=== PATIENT | female | born 1965 | race Caucasian/White ===

== ENCOUNTER → 2021-03-30 13:52 | Outpatient (CLI) | payer OTHER, SELFPAY ==
--- NOTE | ~2021-03-30 | XR_ITS ---
XR thoracic spine 3V DATE: 03/30/2021 14:09 INDICATION: Right mid back pain. Lumbar pain. TECHNIQUE: Standing AP and lateral and swimmer views COMPARISON: None FINDINGS: There is diffuse idiopathic skeletal hyperostosis of the mid to lower thoracic spine. No fr acture or dislocation or bone destruction. The thoracic pedicles are intact. No paraspinal soft tissu e thickening. IMPRESSION: Diffuse idiopathic skeletal hyperostosis Reviewed, dictated and finalized at location A.
--- NOTE | ~2021-03-30 | XR_ITS ---
XR lumbar spine 2-3V DATE: 03/30/2021 14:09 INDICATION: Right mid back pain, lumbar pain. TECHNIQUE: Standing AP, lateral, coned lateral lumbosacral views COMPARISON: None FINDINGS: There are 4 functional lumbar vertebra and a transitional lumbosacral vertebra. Lumbar and lumbosacral interspaces appear well preserved. There is mild degenerative spurring in the mid to lower lumbar spine. Diffuse osteopenia. No fracture or bone destruction or spondylolisthesis. The lumbar pedicles are intact. The sacroiliac joints are intact. IMPRESSION: Mild degenerative spurring Osteopenia Reviewed, dictated and finalized at location A.
== END ==
PROVIDERS: PCP Internal Medicine; Visit Provider Internal Medicine
DX: M54.5 Low back pain (principal); M85.88 Other specified disorders of bone density and structure, other site; M47.816 Spondylosis without myelopathy or radiculopathy, lumbar region; M48.14 Ankylosing hyperostosis [Forestier], thoracic region
CPT/HCPCS: 72072; 72100

== ENCOUNTER → 2022-01-27 10:25 | Outpatient (CLI) | payer OTHER, SELFPAY ==
--- NOTE | ~2022-01-27 | XR_ITS ---
EXAMINATION: XR chest 2V DATE: 01/27/2022 10:44 INDICATION: Unexplained weight loss TECHNIQUE: AP and lateral views of the chest are obtained. COMPARISON: None available FINDINGS: A subtle 8 mm nodular opacity projects in the left lung base. There is no pleural effusion or pneumothorax. The cardiomediastinal silhouette is normal. There are bridging osteophytes at multip le levels in the spine, consistent with diffuse idiopathic skeletal hyperostosis (DISH). IMPRESSION: 1. Subtle nodular opacity of the left lung base. Further evaluation with CT of the chest is recommend ed. Reviewed, dictated and finalized at location F. IMPRESSION: 1. Subtle nodular opacity of the left lung base. Further evaluation with CT of the chest is recommended.
== END ==
PROVIDERS: PCP Internal Medicine; Visit Provider Internal Medicine
DX: R63.4 Abnormal weight loss (principal); R91.8 Other nonspecific abnormal finding of lung field
CPT/HCPCS: 71046

== ENCOUNTER → 2022-02-08 15:19 | Outpatient (CLI) | payer OTHER, SELFPAY ==
--- NOTE | ~2022-02-08 | CT_ITS ---
EXAMINATION: CT diagnostic chest wo con DATE: 02/08/2022 15:39 INDICATION: Lung nodule TECHNIQUE: Computed tomography (CT) of the chest was performed without intravenous contrast. The dose -length product (DLP) was 69.35 mGy-cm. Automated exposure control and iterative reconstruction techn ique were employed. COMPARISON: Chest radiograph, 01/27/2022 FINDINGS: There is a 1.3 x 1.0 cm nodule of the lingula. There is a 3 mm nodule of the right lower lo be on image 61. There is a 5 mm nodule of the right lower lobe on image 94. There is a 2 mm nodule of the right lower lobe on image 86. The lungs are free of focal airspace opacities. No pleural effusio n or pneumothorax. No pathologically enlarged thoracic lymph nodes are identified. The heart size is normal. There is moderate thoracic spondylosis. IMPRESSION: 1. Pulmonary nodules measuring up to 1.3 cm in the lingula. Findings could be infectious/inflammatory versus malignancy. Recommend comparison with any available prior imaging. If none is available, lesley mmend CT-guided biopsy or follow-up CT in three months. Reviewed, dictated and finalized at location B. IMPRESSION: 1. Pulmonary nodules measuring up to 1.3 cm in the lingula. Findings could be i nfectious/inflammatory versus malignancy. Recommend comparison with any availab le prior imaging. If none is available, recommend CT-guided biopsy or follow-up CT in three months.
== END ==
PROVIDERS: PCP Internal Medicine; Visit Provider Internal Medicine
DX: R91.1 Solitary pulmonary nodule (principal); R91.8 Other nonspecific abnormal finding of lung field
CPT/HCPCS: 71250

== ENCOUNTER → 2022-04-27 10:01 | Outpatient (CLI) | payer OTHER, SELFPAY ==
--- NOTE | ~2022-04-27 | CT_ITS ---
EXAMINATION: CT diagnostic chest wo con DATE: 04/27/2022 10:17 INDICATION: Left lung nodules TECHNIQUE: Computed tomography (CT) of the chest was performed without intravenous contrast. The dose -length product was 53.73 mGy-cm. Automated exposure control and iterative reconstruction technique w ere employed. COMPARISON: CT dated 02/08/2022 FINDINGS: No significant pleural or pericardial effusion. Heart size normal. No thoracic lymphadenopa thy. The upper abdomen is unremarkable. No focal airspace consolidation. There is a 3 mm right lower lobe nodule, unchanged. There is a 7 mm right lower lobe nodule, image 86, unchanged. Significant dec reased size of lingular nodule now measuringr 6 mm maximum dimension compared with 1.3 cm on prior ex amination, most likely postinfectious/inflammatory. No new pulmonary nodules or masses. IMPRESSION: 1. Stable or decreased size of bilateral pulmonary nodules compared with prior examination, likely be nign. Follow-up low dose CT chest in 12 months recommended. Reviewed, dictated and finalized at location A. IMPRESSION: 1. Stable or decreased size of bilateral pulmonary nodules compared with prior examination, likely benign. Follow-up low dose CT chest in 12 months keniae linda
== END ==
PROVIDERS: PCP Internal Medicine; Visit Provider Nurse Practitioner Family
DX: R91.8 Other nonspecific abnormal finding of lung field (principal)
CPT/HCPCS: 71250

== ENCOUNTER 2022-07-19 07:29 | Outpatient (NON) | payer OTHER, SELFPAY | END 2022-07-19 07:30 | disposition home or self-care (01) | LOC: ANHLAB 07-20 07:31 | PROVIDERS: PCP Internal Medicine; Visit Provider Internal Medicine Gastroenterology | DX: Z12.9 Encounter for screening for malignant neoplasm, site unspecified (principal); K63.5 Polyp of colon | CPT/HCPCS: 88305 ==

== ENCOUNTER 2022-07-19 10:34 | Day surgery (SDC) | payer OTHER, SELFPAY ==
[2022-02-21 11:27] VITALS: BMI 29.5
[2022-04-14 11:08] VITALS: BMI 23.1
[2022-07-12 06:27] VITALS: BMI 23.1
--- NOTE | 2022-07-12 06:32 | PC.NURSE ---
07/11/22 1500- patient called with new date and time--previous health history reviewed and amended
[2022-07-19 10:52] VITALS: BMI 22.6
[2022-07-19 11:03] LABS: Glucose Point of Care 96 mg/dl (65-105)
--- NOTE | 2022-07-19 11:20 | WPDANESEPPF ---
Anes - Initial Pre Proc Eval Procedure: Operation Date: 07/19/22 12:00 Proposed Procedures p Screening Colonoscopy - Julian Vivas MD Date/Time: 07/19/22 11:20 Surgeon: Julian Vivas MD Pre Op Diagnosis: Neoplasm Screening Patient Data Age: 57 Gender: F Height: 1.63 m Weight: 59.75 kg Allergies Allergy/AdvReac Type Severity Reaction Status Date / Time No Known Allergies Allergy Verified 07/19/22 10:51 Home Medications Medication Instructions Recorded Confirmed Type escitalopram oxalate 20 mg tablet 20 mg PO DAILY 02/24/22 07/19/22 History metformin 500 mg tablet,extended 2,000 mg PO DAILY 02/24/22 07/19/22 History release 24 hr rosuvastatin 20 mg tablet 20 mg PO DAILY 02/24/22 07/19/22 History semaglutide 0.25 mg or 0.5 mg (2 0.25 mg subcut WEEKLY 02/24/22 07/19/22 History mg/1.5 mL) subcutaneous pen injector (Ozempic) tamoxifen 20 mg tablet 20 mg PO DAILY 02/24/22 07/19/22 History Laboratory Tests 07/19/22 11:00 POC Capillary Glucose 96 mg/dl mg/dl (65-105) Patient hx anesthesia problems: none Family hx anesthesia problems: none Results Review: All pre-operative results and documents have been reviewed as part of the pre-operative evaluation. [facility] Past Medical History Medical History Anxiety HTN (hypertension) Irregular menses Microalbuminuria Nasal septal deviation s/p surgery 2018 Other hyperlipidemia Type 2 diabetes mellitus without complications Surgical History Surgical History H/O nasal septoplasty Family History Family History Father Cerebrovascular accident, Onset Age: 86 Family history of coronary artery disease, Onset Age: 86 Patient's father is , Onset Age: 86 Acute myocardial infarction Mother Breast cancer Hypertension Dementia Sibling Diabetes mellitus Sibling Hypertension Sibling Psoriatic arthritis Diabetes mellitus Non-melanoma skin cancer Social History Social History Smoking status: Never smoker Alcohol intake: current Drinks per week: 1 Alcohol use details: 1 drink/week Substance use: never Substance use type: does not use Living arrangements: with family 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 Informed Consent: The patient's anesthetic plan and its attendant risks and benefits were discussed with the patient/family/POA. Questions were solicited and answers provided to the satisfaction of the patient/family/POA.
[2022-07-19 11:22] VITALS: BP 117/77; PULSE 115; RESP 16; TEMP 37.8; O2SAT 98
[2022-07-19] MEDS: LACTATED RINGERS 1,000 ML 150 ML IV CONT (11:24)
--- NOTE | 2022-07-19 11:50 | PM.HPGS ---
History of Present Illness History of Present Illness Consent: Risks, benefits, and alternatives have been discussed and questions answered. Patient agrees to proceed with procedure. Chief complaint: Neoplasm Screening Narrative: Lissa Ritter is a 57 year old female with colon polyp ~ 5 years ago Review of Systems Constitutional: Constitutional: Denies headache(s) and Denies weakness Eyes: Eyes: Denies blurry vision ENT: Reports Normal hearing present, Denies headache(s) and Denies neck pain Cardiovascular: Cardiovascular: Denies chest pain and Denies dyspnea Respiratory: Respiratory: Denies dyspnea Gastrointestinal: Gastrointestinal: Reports no additional gastrointestinal complaints Genitourinary: Genitourinary: Denies dysuria Musculoskeletal: Musculoskeletal: Denies neck pain Integumentary/Breasts: Skin/Breast: Denies dry skin Neurologic: Reports Normal hearing present, Denies headache(s) and Denies weakness Psychiatric: Psychiatric: Denies anxiety Endocrine: Endocrine: Denies change in body appearance Hematologic/Lymphatic: Hematologic/Lymphatic: Denies easy bleeding Allergic/Immunologic: Allergic/Immunologic: Denies urticaria PMFSH Past Medical History Medical History (Updated 07/19/22 @ 11:51 by Julian Vivas MD) Adenomatous colon polyp Anxiety HTN (hypertension) Irregular menses Microalbuminuria Nasal septal deviation s/p surgery 2018 Other hyperlipidemia Type 2 diabetes mellitus without complications Surgical History Surgical History H/O nasal septoplasty Family History Family History Father Cerebrovascular accident, Onset Age: 86 Family history of coronary artery disease, Onset Age: 86 Patient's father is , Onset Age: 86 Acute myocardial infarction Mother Breast cancer Hypertension Dementia Sibling Diabetes mellitus Sibling Hypertension Sibling Psoriatic arthritis Diabetes mellitus Non-melanoma skin cancer Social History Social History Smoking status: Never smoker Alcohol intake: current Drinks per week: 1 Alcohol use details: 1 drink/week Substance use: never Substance use type: does not use Living arrangements: with family 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 Spiritual care concerns: No Meds Home Medications and Allergies Home Medications Medication Instructions Recorded Confirmed Type escitalopram oxalate 20 mg tablet 20 mg PO DAILY 02/24/22 07/19/22 History metformin 500 mg tablet,extended 2,000 mg PO DAILY 02/24/22 07/19/22 History release 24 hr rosuvastatin 20 mg tablet 20 mg PO DAILY 02/24/22 07/19/22 History semaglutide 0.25 mg or 0.5 mg (2 0.25 mg subcut WEEKLY 02/24/22 07/19/22 History mg/1.5 mL) subcutaneous pen injector (Ozempic) tamoxifen 20 mg tablet 20 mg PO DAILY 02/24/22 07/19/22 History Allergies Allergy/AdvReac Type Severity Reaction Status Date / Time No Known Allergies Allergy Verified 07/19/22 10:51 Vital Signs Vital Signs - 24 hr 07/19/22 11:22 Temperature 100.0 F H Pulse Rate 115 H Respiratory Rate 16 Blood Pressure 117/77 Pulse Oximetry 98 Oxygen Delivery Room Air Exam Const: General: comfortable and no acute distress HENMT: Face/Nose/Sinus: Normal nares present Eyes: General: appearance normal, both eyes and all related structures Neck: Neck: no JVD Resp: Auscultation: clear to auscultation bilaterally Cardio: Rate: regular rate Rhythm: regular rhythm GI: Inspection: non-distended GI Palp: Yes Soft to palpation Skin: General skin exam: normal color Neuro: General: gait normal Speech: normal speech Extrem: General: normal to inspection Psych: Mental Status: mental status grossly normal Asse
[2022-07-19 12:20] VITALS: BP 108/47; PULSE 95; RESP 16; O2SAT 95
[2022-07-19 12:25] VITALS: BP 92/68; PULSE 97; RESP 15; O2SAT 99
--- NOTE | 2022-07-19 12:25 | WPDANESPN ---
Anes - Prog Note Post-Op Date/Time: 07/19/22 12:25 Cardiovascular status: normal Respiratory status: normal Airway patency: baseline Mental status: baseline Post-Op hydration status: normal Vital Signs: Last Vital Signs Temp 37.8 C H 07/19/22 11:22 Pulse 95 07/19/22 12:20 Resp 16 07/19/22 12:20 BP 108/47 L 07/19/22 12:20 Pulse Ox 95 07/19/22 12:20 O2 Del Method Room Air 07/19/22 12:20 Pain Score (VAS): 0 I/O: Intake & Output 07/18/22 07/19/22 07/19/22 23:59 07:59 15:59 Intake Total 400 Balance 400 07/19/22 11:00 POC Capillary Glucose 96 Patient Feedback: Patient satisfied with anesthetic care.
[2022-07-19 12:50] VITALS: BP 100/77; PULSE 95; RESP 15; O2SAT 100
== END 2022-07-19 12:59 | disposition home or self-care (01) ==
PROVIDERS: PCP Internal Medicine; Visit Provider Internal Medicine Gastroenterology
PROC: 0DJD8ZZ Inspection of Lower Intestinal Tract, Via Natural or Artificial Opening Endoscopic (ICD-10-PCS; CPT 45378; principal; 2022-07-19 12:00)
DX: Z86.010 Personal history of colon polyps (principal)
CPT/HCPCS: 45385

== ENCOUNTER 2023-04-25 10:01 | Outpatient (CLI) | payer OTHER, SELFPAY ==
--- NOTE | ~2023-04-25 | CT_ITS ---
CT Scan of the Chest without Contrast: Clinical Indication: Lung nodule Technique: Contiguous sections were acquired throughout the chest without intravenous contrast. Dose reduction technique was used on this scan by utilizing automated exposure control and iterative recon struction technique. The dose-length product (DLP) was 60.93 mGy-cm. COMPARISON: 04/27/2022, 02/08/2022 Findings: There is no evidence of any significant mediastinal, hilar or axillary lymphadenopathy. The mediastin al soft tissues appear normal. There is no evidence of pleural or pericardial effusion. Stable 5 mm nodule the right lung base (axial image 91). Stable additional 3 mm right lower lobe pulm onary nodule (axial image 83). Stable additional 4 mm right lower lobe nodule (axial image 58). Images through the upper abdomen reveal no abnormalities. Impression: Stable subcentimeter pulmonary nodules, as detailed above, most likely benign. Consider additional on e-year follow-up exam to document 2 years of stability. Reviewed, dictated and finalized at [facility]. Impression: Stable subcentimeter pulmonary nodules, as detailed above, most likely benign. Consider additional one-year follow-up exam to document 2 years of stability.
== END 2023-04-25 10:02 | disposition home or self-care (01) ==
PROVIDERS: PCP Internal Medicine; Visit Provider Nurse Practitioner Family
DX: R91.1 Solitary pulmonary nodule (principal)
CPT/HCPCS: 71250

== ENCOUNTER 2024-04-22 10:01 | Outpatient (CLI) | payer BC, SELFPAY ==
--- NOTE | ~2024-04-22 | CT_ITS ---
EXAMINATION:CT diagnostic chest wo con DATE: 04/22/2024 10:19 INDICATION: Solitary pulmonary nodule. TECHNIQUE: Computed tomography (CT) of the chest was performed without intravenous contrast. Automate d exposure control and iterative reconstruction technique were employed. The dose-length product (DLP ) was 66.33 mGy-cm. COMPARISON: Chest CT 04/25/2023, 04/27/22 FINDINGS: There is mild scarring at the lung apices. There is a 4 mm nodule in right lower lobe. Ther e is a 5 mm nodule in right lower lobe. There is a 3 mm nodule in left lower lobe. There is a 3 mm no dule in left upper lobe. No pleural effusion. The heart size is normal. There are coronary artery ting cifications. No pericardial effusion. There is a small sliding hiatal hernia. There are bridging endp late osteophytes at multiple levels in the spine, consistent with diffuse idiopathic skeletal hyperos tosis (DISH). IMPRESSION: 1. Small pulmonary nodules, stable from 04/27/2022, likely benign. Reviewed, dictated and finalized at location A.
== END 2024-04-22 10:02 | disposition home or self-care (01) ==
PROVIDERS: PCP Internal Medicine; Visit Provider Nurse Practitioner Family
DX: R91.8 Other nonspecific abnormal finding of lung field (principal); R91.1 Solitary pulmonary nodule
CPT/HCPCS: 71250